=== PATIENT | female | born 1995 | race Two or more races ===

== ENCOUNTER 2023-05-07 08:56 | Emergency (ER) | payer MEDICAID, OTHER ==
[~2023-05-07] VITALS: Ht 152.4 cm; Wt 65.7 kg
[2023-05-07 09:33] LABS: Urine Epithelial Cast None Seen /hpf (<5)
[2023-05-07 09:52] LABS: Urine Bacteria NONE SEEN /hpf (None Seen); Urine Blood 2+ /uL (Negative); Urine Clarity HAZY (Clear); Urine Color Yellow (Yellow); Urine Mucus FEW (None Seen); Urine Protein, UAD 2+ (Negative); Urine Specific Gravity 1.019 (1.001-1.035); Urine Urobilinogen Normal (Negative); Urine WBC 322 /hpf (0 - 5); Urine pH 8.5 (5.0-8.0)
[2023-05-07] MEDS ORDERED: NITR-87 PO (10:38)
[2023-05-07 10:51] VITALS: BP 120/68; PULSE 86; RESP 18; TEMP 98.3; O2SAT 98
== END 2023-05-07 10:53 | disposition home or self-care (01) ==
LOC: ER 08:56
DX: O20.0 Threatened abortion (principal); O23.42 Unspecified infection of urinary tract in pregnancy, second trimester; Z3A.16 16 weeks gestation of pregnancy; Z79.899 Other long term (current) drug therapy
CPT/HCPCS: 76805; 81001